=== PATIENT | female | born 1990 | race Caucasian/White ===

== ENCOUNTER → 2022-11-05 | Outpatient (CLI) | payer OTHER, SELFPAY ==
[2022-11-08 21:07] LABS: Chlamydia By Nucleic Acid AMP Negative (Negative); Gonococcus By Nucleic Acid AMP Negative (Negative)
== END | disposition home or self-care (01) ==
PROVIDERS: Visit Provider Advanced Practice Midwife
DX: O09.90 Supervision of high risk pregnancy, unspecified, unspecified trimester (principal); Z3A.00 Weeks of gestation of pregnancy not specified
CPT/HCPCS: 87086; 87088; 87491; 87591

== ENCOUNTER → 2022-12-14 | Outpatient (CLI) | payer OTHER, SELFPAY ==
[2022-12-14 09:04] LABS: Absolute Lymphocyte Count 1.44 X10^3/uL (0.83-4.51); Absolute Neutrophil Count 6.1 X10^3/uL (2.0-7.7); Basophil# 0.05 X10^3/uL; Basophil% 0.6 % (0-1); Eosinophil# 0.18 X10^3/uL; Eosinophils% 2.2 % (0-5); Hematocrit 36.4 % (37-47); Hemoglobin 11.5 g/dL (12.0-15.0); Lymphocyte # 1.44 X10^3/ul (0.83-4.51); Lymphocyte % 17.2 % (19-41); Mean Corp Hgb Conc 31.6 g/dL (32-36); Mean Corpuscular Hgb 27.6 pg (27.0-32.0); Mean Corpuscular Volume 87.3 fL (81-99); Mean Platelet Vol. 10.7 fl (6.2-12.0); NRBC Flagged by Analyzer 0 % (0-5); Neutrophil # 6.12 X10^3/uL (2.7-7.7); Neutrophil % 73.3 % (47-70); Platelet Count 221 K/mm3 (150-450); RBC Distribution Width CV 13.5 % (11.6-14.6); Red Blood Count 4.17 M/mm3 (4.2-5.4); White Blood Count 8.4 K/mm3 (4.4-11.0)
[2022-12-14 09:14] LABS: Glucose Challenge Gest 1H 50g 122 mg/dL (70-140)
[2022-12-14 10:01] LABS: HIV - WCH Non-Reactive (Nonreactive); Hepatitis B Surface Antigen Non-Reactive (Nonreactive); Hepatitis C Antibody Non-Reactive (Nonreactive); Rubella IgG Reactive (Nonreactive); Syphilis Antibodies Non-reactive
== END | disposition home or self-care (01) ==
PROVIDERS: Referring Provider Advanced Practice Midwife; Visit Provider Advanced Practice Midwife
DX: O99.210 Obesity complicating pregnancy, unspecified trimester (principal); Z3A.00 Weeks of gestation of pregnancy not specified
CPT/HCPCS: 36415; 82950; 85025; 86703; 86762; 86780; 86803; 86850; 86900; 86901; 87340

== ENCOUNTER → 2023-03-24 | Outpatient (CLI) | payer OTHER, SELFPAY ==
[2023-03-24 10:18] LABS: Absolute Lymphocyte Count 1.49 X10^3/uL (0.83-4.51); Absolute Neutrophil Count 6.7 X10^3/uL (2.0-7.7); Basophil# 0.02 X10^3/uL; Basophil% 0.2 % (0-1); Eosinophil# 0.17 X10^3/uL; Eosinophils% 1.9 % (0-5); Hematocrit 33.3 % (37-47); Hemoglobin 11.2 g/dL (12.0-15.0); Lymphocyte # 1.49 X10^3/ul (0.83-4.51); Lymphocyte % 16.6 % (19-41); Mean Corp Hgb Conc 33.6 g/dL (32-36); Mean Corpuscular Hgb 29.5 pg (27.0-32.0); Mean Corpuscular Volume 87.6 fL (81-99); Monocyte# 0.51 X10^3/uL; Monocyte% 5.7 % (0-10); NRBC Flagged by Analyzer 0 % (0-5); Neutrophil # 6.71 X10^3/uL (2.7-7.7); Neutrophil % 74.5 % (47-70); Platelet Count 192 K/mm3 (150-450); RBC Distribution Width CV 13.7 % (11.6-14.6); RBC Distribution Width SD 43.8 fl (35.1-43.9)
[2023-03-24 10:24] LABS: Glucose Challenge Gest 1H 50g 153 mg/dL (70-140)
[2023-03-24 11:21] LABS: HIV - WCH Non-Reactive (Nonreactive); Syphilis Antibodies Non-reactive
== END | disposition home or self-care (01) ==
LOC: PAVLAB 09:40
PROVIDERS: Referring Provider Obstetrics & Gynecology; Visit Provider Obstetrics & Gynecology
DX: O09.90 Supervision of high risk pregnancy, unspecified, unspecified trimester (principal); Z3A.00 Weeks of gestation of pregnancy not specified; Z13.1 Encounter for screening for diabetes mellitus
CPT/HCPCS: 36415; 82950; 85025; 86703; 86780

== ENCOUNTER → 2023-05-05 | Outpatient (CLI) | payer OTHER, SELFPAY ==
--- NOTE | 2023-05-05 16:41 | US_ITS ---
INDICATION: low fundal height, growth EXAMINATION: Ultrasound US OB Limited 1 Or More Fetus TECHNIQUE: transabdominal pelvic ultrasound was performed. Grayscale, spectral waveform, and color flow Doppler evaluation of the adnexa. COMPARISON: 11/05/2022 with EDC 06/10/2023 LMP: 09/03/2022 Beta-hCG: Unknown. Provided EGA: 34 weeks 6 days FINDINGS: INTRAUTERINE GESTATION(s): Single. ESTIMATED GESTATIONAL AGE: 36 weeks 0 days ESTIMATED DUE DATE (DWAYNE): 06/02/2023 HEART MOTION is 143 bpm. AMNIOTIC FLUID INDEX (SILVANA): 20.7 cm ESTIMATED WEIGHT: 2642 g or 5 lbs. 13 oz. Percentile 59th%. BIOPHYSICAL PROFILE (BPP): Not assessed. PRESENTATION: Cephalic PLACENTA: Anterior. There is no placenta previa or abruption. CERVIX: The cervix is not visualized. US/OB Limited With Biometrics IMPRESSION: Single live intrauterine of 36 weeks 0 days. Electronically Signed: Mikey Lopez MD at 22:31 EST ,
== END | disposition home or self-care (01) ==
LOC: US 16:39
PROVIDERS: PCP Registered Nurse; Referring Provider Obstetrics & Gynecology; Visit Provider Obstetrics & Gynecology
DX: O26.843 Uterine size-date discrepancy, third trimester (principal); Z3A.00 Weeks of gestation of pregnancy not specified
CPT/HCPCS: 76816

== ENCOUNTER → 2023-05-26 | Outpatient (CLI) | payer OTHER, SELFPAY ==
[2023-05-26 15:19] LABS: ROM Internal Control Test YES-OK TO RESULT pt. (Internal QC); ROM Patient Test Negative (Negative)
[2023-05-26 15:20] LABS: Record Kit Lot#, ROM+ K1374
--- OUTSIDE RECORDS SUMMARY | 2023-05-26 17:27 | XMS RPT_ITS | CCD ---
Author Name Unknown Address [address] [place] [address] Organization [facility] Care Team Providers Care Protective Signal Operations Supervisor Name Role Phone Nadia Estes Primary Care Provider [phone] [facility], Primary Care Unavailable JONH NAIR Referring JONH Parsons SHARON E Attending Unavailabl e NO PRIMARY CAREMD Primary Care Unavailable JONH NAIR Referring MIREYA Knight Attending Unavailable NADIA ESTES Primary Care Unavailable Medications Current Medications Medication Drug Class(es) Dates Sig (Normalized) Sig (Original) Sertraline (1 source) Serotonin Reuptake Inhibitor Sertraline HCl (ZOLO FT PO) Take by mouth 0 Active Results Test Name Value Interpretation Reference Range Facil ity Encounters Encounter Date Encounter Type Care Provider Facility Start: 04-26-2023 ambulatory MIREYA [facility] Ambulatory Start: 01-31-2023 End: 01-31-2023 ambulatory JONH NAIR [facility] Start: 01-10-2023 End: 01-10-2023 ambulatory MD [facility] Start: 09-11-2020 End: 09-11-2020 Subsequent hospital visit by physician Milli Dm Gestfu Schedule [facility] Diabetic Education and Nursing Procedures Date Procedure Procedure Detail Performing Clinician Start: 08-26-[address] gtt 3 specimens Ravindra Currie Work Phone: Plan of Treatment Date Care Activity Detail Author Start: 05-31-2026 DTaP/Tdap/Td vaccine (2 - Td) DTaP/Tdap/Td vaccine (2 - Td) [facility] Work Phone: Start: 09-01-2021 Influenza vaccination Flu vacc ine (Season Ended) [employer] Phone: Start: 09-11-2020 End: 09-11-2020 Appointment 09/11/2020 Appointment Diabetes Services [facility] Diabetic Education and Nursing Start: 2010 Screening for malign ant neoplasm of cervix Cervical cancer screen [employer] Phone: Start: 2008 DTaP/Tdap/Td vaccine (1 - Tdap) DTaP/Tdap/Td vaccine (1 - Tdap) [employer] Phone: Start: 2005 COVID-19 Vaccine (1) COVID-19 Vaccin e (1) [employer] Phone: Start: 2004 HIV screening HIV screen [facility] Work Phone: Start: 1990 Varicella vaccine (1 of 2 - 2-dose childhood series) Varicella vaccine (1 of 2 - 2-dose childhood series) [employer] Phone: Start: 1989 Hepatitis C screening Hepatitis C sc reen [employer] Phone: Payers Date Payer Category Payer Private Health Insurance [id number] 2020 Private Health Insurance [id number] 2020 Private Health Insurance [id number] 1989 Unknown [id number] 1989 Unknown [id number] 1989 Unknown [id number] Unknown [id number] Social History Date Type Detail Facility Tobacco smoking status NHIS Unknown if ev er smoked [employer] Phone: Sex Assigned At Not on file [employer] Work Phone: Summary Purpose Family History No Family History Records FoundNo Family History Records FoundNo Family History Records Found Advance Directives No Advanced Directives Records FoundNo Advanced Directives Records FoundNo Advanced Directives Records Found Additional Source Comments Reason for Visit (unrecogniz ed section and content) INFORMATION SOURCE (unrecogn ized section and content) DATE CREATED AUTHOR AUTHOR'S ORGANIZ ATION 02/01/2023 [facility] DATE CREATED AUTHOR AUTHOR'S ORGANIZ ATION 04/29/2023 [facility] FOR RECORDS PERTAINING TO PATIENTS WHO ARE OR HAVE BEEN ENROLLED IN A CHEMICAL DEPENDENCY/SUBSTANCEABUSE PROGRAM, SOME INFORMATION MAY BE OMITTED. This clinical summary was aggregated from multiple sources. Caution should be exercised in using it in the provision of clinical care. This summary normalizes information from multiple sources, and as a consequence, information in this document may materially change the coding, format and clinical context of patient data. In addition, data may be omitted in some cases. CLINICAL DECISIONS SHOULD BE BASED ON THE PRIMARY CLINICAL RECORDS. [employer] [facility]. provides no warranty or guarantee of the accuracy or completeness of information in this document.
== END | disposition home or self-care (01) ==
PROVIDERS: PCP Registered Nurse; Referring Provider Obstetrics & Gynecology; Visit Provider Obstetrics & Gynecology
DX: O09.90 Supervision of high risk pregnancy, unspecified, unspecified trimester (principal); Z3A.00 Weeks of gestation of pregnancy not specified
CPT/HCPCS: 84112; 87081

== ENCOUNTER 2023-06-03 05:15 | Inpatient (IN) | payer OTHER, SELFPAY ==
[2023-06-03] VITALS (25 sets, daily range): BP systolic 95–118; BP diastolic 55–83; PULSE 70–97; RESP 16–18; TEMP 36.1–36.6; O2SAT 96–100; BMI 40.7
[2023-06-03] MEDS: Lactated Ringers 1,000 ML 999 ML IV (05:30)
[2023-06-03 06:10] LABS: Absolute Lymphocyte Count 1.55 X10^3/uL (0.83-4.51); Basophil# 0.04 X10^3/uL; Basophil% 0.5 % (0-1); Eosinophils% 1.2 % (0-5); Hematocrit 34.2 % (37-47); Hemoglobin 11.1 g/dL (12.0-15.0); Lymphocyte # 1.55 X10^3/ul (0.83-4.51); Lymphocyte % 18.2 % (19-41); Mean Corp Hgb Conc 32.5 g/dL (32-36); Mean Corpuscular Hgb 28.2 pg (27.0-32.0); Mean Corpuscular Volume 86.8 fL (81-99); Mean Platelet Vol. 12.5 fl (6.2-12.0); Monocyte# 0.75 X10^3/uL; Monocyte% 8.8 % (0-10); NRBC Flagged by Analyzer 0 % (0-5); Neutrophil # 5.95 X10^3/uL (2.7-7.7); Platelet Count 190 K/mm3 (150-450); RBC Distribution Width CV 13.8 % (11.6-14.6); RBC Distribution Width SD 43.3 fl (35.1-43.9); Red Blood Count 3.94 M/mm3 (4.2-5.4); White Blood Count 8.5 K/mm3 (4.4-11.0)
[2023-06-03 06:21] LABS: Bedside Glucose 140 mg/dL (74-106)
--- NOTE | 2023-06-03 06:25 | HP.PCM.OB_ITS ---
HPI - General General Date of Admission: 06/03/23 HPI Narrative NAGA KLEIN, is a 32 F who presents for RLTCS due to Polyhydramnios and previous csection, unfavroable cervix. she failed her 1 hour GCT and declined 3 hour testing. She had checking BS 4 times daily for several weeks and they were WNL. SILVANA 25.6cm in office yesterday. Maternal Data Information DWAYNE Calculator Estimated Delivery Date Method Current WG Current Estimate 06/10/23 LMP (Certain) 39w 0d PFSH PFSH Medical History (Updated 06/03/23 @ 06:[address] Christine Barney MD) Abnormal glucose affecting History of depression Polyhydramnios Home Medications multivitamin with iron 1 tab PO DAILY 01/22/22 [History Last Taken 06/02/23 20:30] promethazine 12.5 mg tablet 12.5 mg PO Q6H PRN nausea and vomiting #90 tabs 11/08/22 [Rx Last Taken Unknown] doxylamine 20 mg-pyridoxine 20 mg tablet,immediate and delayed release (Bonjesta) 1 tab PO BID vomiting #60 tabs 11/17/22 [Rx Last Taken Unknown] sertraline 50 mg tablet (Zoloft) 50 mg PO DAILY ppd #90 tabs 04/04/23 [Rx Last Taken 06/02/23] blood sugar diagnostic (Blood Glucose Test strips) #120 ea 04/25/23 [Rx Last Taken Unknown] Allergy/AdvReac Type Severity Reaction Status Date / Time gluten Allergy Mild Abd Verified 06/03/23 05:28 cramps/diarrhea Family History Father Afib Surgical History delivery delivered H/O vaginal surgery Social History adopted: No household members: family number of children: 2 current occupational status: employed current occupation: [employer] pets and animals: Yes pets and animals: dog(s) history of recent travel: Yes out of country: Yes sexually active: Yes Smoking Status: Never smoker alcohol intake: current details: social substance use type: does not use caffeine: No what type of physical activity do you participate in: none seatbelt use: always do you feel safe at home: Yes additional social history: Noam PAZ 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 Date Name GA/Weeks Outcome Route Bth Weight Infant Gen Labor Lgth Anesthesia Del Locatn Provider FOB 07/01/16 Alana 41 live - full term Female s shanelle [place] 11/13/20 Deandre (Shar) 42 live - full term Male epidural [place] Dr. [facility] Visit Details Expected Delivery Route/Plan patient counseled regarding risks/benefits of trial of labor versus repeat . ACOG/uptodate education given to patient. 87 % likelihood of success per calculator TOLAC consent form signed: [] Labor Preferences- CB/BF classes: no labor support person: Flip labor intervention preferences: [] pain management options preferred: epidural cut cord/dad catch: yes : yes PP control planned: discussed discussed possible routes of delivery and associated risks: [] special requests: [] Plans Covid status: discussed Flu vaccine: discussed Tdap vaccine: declined Rhogam: NA LARC form signed: yes movement and labor precautions reviewed. Problem list reviewed and updated with the most current plan of care details and appropriate orders placed. Relevant counseling for the gestational age provided. Continue routine care and follow up unless otherwise noted in visit notes/problem list details OB Flowsheet Initial Weight: Not Recorded Date -?-?-?-?-?-?-?-?-?-?-?-?- EGA Weight BP Urine Prot -?-?-?-?-?-?-?-?-?-?-?-?- Glucose FHR FuHt Pres Dilation -?-?-?-?-?-?-?-?-?-?-?-?- Effaced St Visit Note 11/05/22 -?-?-?-?-?-?-?-?-?-?-?-?- 9w 0d 215 lb 2 oz 110/65 -?-?-?-?-?-?-?-?-?-?-?-?- 168 -?-?-?-?-?-?-?-?-?-?-?-?- KW- cons with da mikal. JV scanned. n/v- recommended Vit b6 and unisom 12/14/22 -?-?-?-?-?-?-?-?-?-?-?-?- 14w 4d 211 lb 2 oz 107/72 Nega tive -?-?-?-?-?-?-?-?-?-?-?-?- Negative -?-?-?-?-?-?-?-?-?-?-?-?- KW-FHR seen on h andheld US. no vb/cramping, PRR, US ordered. no concerns today 01/13/23 -?-?-?-?-?-?-?-?-?-?-?-?- 18w 6d 215 lb 4 oz 118/74 Nega tive -?-?-?-?-?-?-?-?-?-?-?-?- Negative 156 -?-?-?-?-?-?-?-?-?-?-?-?- MH-no VB, crampi ng. Nausea managed with Rx. Denies concerns. 02/11/23 -?-?-?-?-?-?-?-?-?-?-?-?- 23w 0d 217 lb 114/77 Negative -?-?-?-?-?-?-?-?-?-?-?-?- Negative 150 -?-?-?-?-?-?-?-?-?-?-?-?- SM- no vb lof go od fm no regular ctx 03/17/23 -?-?-?-?-?-?-?-?-?-?-?-?- 27w 6d 220 lb 120/74 Negative -?-?-?-?-?-?-?-?-?-?-?-?- Negative 143 -?-?-?-?-?-?-?-?-?-?-?-?- MH-No VB, LOF. G ood FM. Larc. Doing 28 wk labs tomorrow. 03/29/23 -?-?-?--?-?-?-?-?-?-?-?-?- 29w 4d 224 lb 2 oz 103/60 -?-?-?-?-?-?-?-?-?-?-?-?- 145 30 -?-?-?-?-?-?-?-?-?-?-?-?- JV- pt declines tdap she also declines doing a 3 hr gtt. she will do 2 hr pp testing and fasting for 2 weeks now then restart testing at 36 weeks. wants to . her last she was 40 weeks 5 days and went into spontaneous labor. 04/12/23 -?-?-?-?-?-?-?-?-?-?-?-?- 31w 4d 222 lb 6 oz 110/72 1+ -?-?-?-?-?-?-?-?-?-?-?-?- Negative 139 32 Cephalic -?-?-?-?-?-?-?-?-?-?-?-?- JV- fasting radamese ls are 80-82, 2 hr pp are all under 120. TOLAC signed. doing well on zoloft. 04/28/23 -?-?-?-?-?-?-?-?-?-?-?-?- 33w 6d 224 lb 112/75 Negative -?-?-?-?-?-?-?-?-?-?-?-?- Negative 130 32 Cephalic -?-?-?-?-?-?-?-?-?-?-?-?- SM- no vb lof go od fm no regular ctx reviwed BW and all WNL 05/09/23 -?-?-?-?-?-?-?-?-?-?-?-?- 35w 3d 226 lb 105/70 Negative -?-?-?-?-?-?-?-?-?-?-?-?- Negative 150 39 Cephalic -?-?-?-?-?-?-?-?-?-?-?-?- JV- growth us sh ows 50th%, 5 lbs 13 oz, vtx, silvana 20. plan for and next week gbs and cervix exam. 05/26/23 -?-?-?-?-?-?-?-?-?-?-?-?- 37w 6d 227 lb 115/78 Negative -?-?-?-?-?-?-?-?-?-?-?-?- Negative 140 39 Cephalic 0 .5 -?-?-?-?-?-?-?-?-?-?-?-?- SM- no vb questi onable lof- rom sent. good fm irreuglar ctx gbs collected 06/02/23 -?-?-?-?-?-?-?-?-?-?-?-?- 38w 6d 229 lb 113/69 -?-?-?-?-?-?-?-?-?-?-?-?- 140 40 Cephalic 0.5 -?-?-?-?-?-?-?-?-?-?-?-?- SM- no vb lof go od fm very uncomfortable with irregular ctx discussed delivery by 41 weeks, will induce whenever favorable NST FHR Rate Baby A Baseline: 130 ROS Constitutional Constitutional: Reports systems reviewed and no addt'l complaints, except as documented Eyes Eyes: Denies change in vision ENT HEENT: Reports systems reviewed and no addt'l complaints, except as documented; Denies headache(s) Cardiovascular Cardiovascular: Reports systems reviewed and no addt'l complaints, except as documented; Denies chest pain or dyspnea Respiratory/Chest Respiratory/Chest: Reports systems reviewed and no addt'l complaints, except as documented Gastrointestinal Gastrointestinal: Reports systems reviewed and no addt'l complaints, except as documented; Denies abdominal pain Genitourinary Genitourinary: Reports systems reviewed and no addt'l complaints, except as documented, contractions Details: present (irregular) and movement Details: present; Denies dysuria or genital lesions Musculoskeletal Musculoskeletal: Reports systems reviewed and no addt'l complaints, except as documented Neurologic Neurologic: Reports systems reviewed and no addt'l complaints, except as documented Endocrine Endocrinology: Reports systems reviewed and no addt'l complaints, except as documented Vital Signs Vital Signs Vital Signs: 06/03/23 05:45 06/03/23 05:33 06/03/23 05:33 Temperature 97.4 F L Temperature Source Temporal Pulse Rate 97 96 Respiratory Rate 16 Blood Pressure 118/72 118/72 Blood Pressure Mean 87 BP Systolic 118 BP Diastolic 72 Blood Pressure Source Monitor Blood Pressure Position Semi-Fowlers Blood Pressure Location Right Arm Pulse Ox Oxygen Delivery Method Room Air 06/03/23 05:33 Temperature Temperature Source Pulse Rate Respiratory Rate Blood Pressure Blood Pressure Mean BP Systolic BP Diastolic Blood Pressure Source Blood Pressure Position Blood Pressure Location Pulse Ox 96 Oxygen Delivery Method Weight Weight: 229 lb 15.074 oz Body Mass Index (BMI) 40.7 Physical Exam Const alert, oriented x3, no apparent distress and healthy appearing HEENT normocephalic and moist oral mucous membranes Head and Scalp: atraumatic Neck full ROM, no lymphadenopathy, supple and thyroid normal General: trachea midline Lymph Lymphatic: no lymphadenopathy noted Chest inspection of chest normal Resp normal respiratory effort Cardio regular rate GI normal to inspection, nondistended, normoactive bowel sounds, soft to palpation and non-tender Inspection: gravid external exam normal Manual OB Exam: estimated gestational size appropriate, presentation cephalic, dilated, effaced and station Extremity normal to inspection General Extremity: Negative for edema Skin no rashes or lesions noted Neuro no focal motor deficits and deep tendon reflexes 2+ bilaterally Motor Exam: strength 5/5 throughout and clonus absent Psych mental status grossly normal Labs Labs Labs: Blood Type A POSITIVE Antibody Screen NEGATIVE Hct 34.2 % (37-47) L Hgb 11.1 g/dL (12.0-15.0) L Pap Smear Negative Obstetrics Ultrasound Syphilis Total Ab Non-reactive Rubella IgG Antibody Reactive (Nonreactive) Hep Bs Antigen Non-Reactive (Nonreactive) Hepatitis C Antibody Non-Reactive (Nonreactive) Chlamydia DNA (ASH) Negative (Negative) N.gonorrhoeae DNA (ASH) Negative (Negative) HIV 1&2 Antibody Non-Reactive (Nonreactive) Glucose 1 Hr 50 gm 153 mg/dL (70-140) H Assessment & Plan (1) Abnormal glucose affecting : COMMENT: Pt has chose to do glucose testing at home for duration of . all WNL. (2) Obesity affecting : QUALIFIERS: Trimester: second trimester Obesity type affecting : unspecified obesity Qualified Code(s): O99.212 - Obesity complicating , second trimester COMMENT: early GCT-passed (3) : QUALIFIERS: Weeks of gestation: 38 weeks Qualified Code(s): Z3A.38 - 38 weeks gestation of COMMENT: GBS Negative, anatomy normal. NIPT/carrier/afp declines. DOC ONLY DELIVERY (4) Depression affecting : COMMENT: zoloft. counseling encouraged; stable (5) Supervision of high risk , antepartum: COMMENT: PRR, , DWAYNE 06/10/23 surprise AMADOR Warner & Deandre, Spouse-Flip (6) Polyhydramnios: COMMENT: recommend 39 week delivery PLAN: Plan proceed with RLTCS due to unfavorable cervix. polyhydramnios. will monitor blood sugars after of baby due to abnormal 1 hour.
--- NOTE | 2023-06-03 06:28 | EX.PCM.OBRPT ---
Assessment & Plan (1) delivery delivered: COMMENT: 39 SM polyhydramnios (2) Polyhydramnios: COMMENT: recommend 39 week delivery (3) Abnormal glucose affecting : COMMENT: Pt has chose to do glucose testing at home for duration of . all WNL. (4) Obesity affecting : QUALIFIERS: Obesity type affecting : unspecified obesity Trimester: second trimester Qualified Code(s): O99.212 - Obesity complicating , second trimester COMMENT: early GCT-passed (5) : QUALIFIERS: Weeks of gestation: 38 weeks Qualified Code(s): Z3A.38 - 38 weeks gestation of COMMENT: GBS Negative, anatomy normal. NIPT/carrier/afp declines. DOC ONLY DELIVERY (6) Depression affecting : COMMENT: zoloft. counseling encouraged; stable (7) Supervision of high risk , antepartum: COMMENT: PRR, , DWAYNE 06/10/23 surprise PC Alana & Deandre, Spouse-Flip Maternal Data Information DWAYNE Calculator Estimated Delivery Date Method Current WG Current Estimate 06/10/23 LMP (Certain) 39w 0d Final DWAYNE Source: LMP Details Operative Information Date of Procedure: 06/03/23 Pre-Operative Diagnosis: Previous Post-Operative Diagnosis: same Indications for : Repeat Elective Indications Narrative: Surgeon: Chrsitine Barney MD Classification: Scheduled Procedure Type: low transverse specialty food products supervisor #1: David Bush Type of Anesthesia: Spinal Special Medications: none Antibiotic Given: Ancef 2 grams IV x1 Drain: Figueroa to straight drain Estimated Blood Loss: 400 Fluids Replaced: crystalloid Procedure Start Time: 07:50 Procedure Stop Time: 08:30 Findings Description of Procedure: Spinal anesthesia was placed without difficulty. Figueroa catheter was placed. The patient was placed in the dorsal supine position with leftward tilt. Patient was prepped and draped in the normal sterile fashion. Pfannenstiel skin incision was made with the scalpel and carried through to the underlying layer of fascia with the scalpel. Fascia was nicked in the midline and the incision extended laterally. The rectus bellies were dissected off superiorly and inferiorly with out complication both sharply and bluntly. The peritoneum was entered digitally. The incision was stretched and a low transverse uterine incision was made with the scalpel. The 's head was delivered atraumatically followed by the anterior and posterior shoulders without complication the rest of the delivered. The cord was clamped and cut and the infant was handed off to awaiting nurse. The placenta was delivered spontaneously immediately following and was noted to be intact and have a three-vessel cord. The uterus was exteriorized cleared of all clots and debris, and the incision was closed in a single layer closure using #1 Monocryl. The ovaries and fallopian tubes were noted to be within normal limits. The uterus was returned to the maternal abdomen and gutters were cleared of all clots and debris. aishwarya applied The peritoneum was closed with 3-0 Monocryl in a running fashion. Fascia was closed with 0 PDS in a running fashion. Subcutaneous tissue was copiously irrigated and the skin was closed with 3-0 Monocryl in a subcuticular fashion. Mepilex dressing was applied without complication. Patient was taken to recovery in stable condition. Amniotic Membrane Rupture Type: Artificial Amniotic Fluid Description: Clear Placenta Disposition: [facility] Cord Vessel Description: 3 Vessels Delayed Cord Clamping: Yes Complications Risks of Surgery Discussed w/Patient: Bleeding, Infection, Need for Future C-Sections and Injury to surrounding structure(s) including bowel and bladder Vaginal Delivery Complication Complications: None Admit VTE Documentation VTE Present on Admission: No VTE Mechan Device Prophylaxis: SCD's Procedures Urinary/Genital [id number]: [id number] Delivery [facility]
--- NOTE | 2023-06-03 06:29 | DCINST_ITS ---
Discharge Instructions Diet Discharge Diet: No restrictions Activity Discharge Activity: May Not Drive (for 2 weeks or while taking narcotic pain medications.), May Shower and May Take a Tub Bath (in 7 days) May shower in (days): 0 May resume sexual activity in: 4-6 weeks Weight Bearing Status: Full weight bearing Lifting Restrictions: 20 pounds Dressing / Incision Call your doctor if your incision/area has: Continuous Slow Oozing, Sudden Increased Bleeding, Increased Pain/ Swelling, Increased Redness and Foul Smelling Discharge Call your doctor if you observe: Fever of 101 or Higher and Using more than 1 pad per hour (for 2 hours) Suture Line Care: Avoid Pulling/Pushing and Avoid Pinching/Bending Cleanse incision/area with: Soap & Water and Keep Dressing Clean & Dry Follow Up Care Please Follow Up With: Christine Barney MD When: Call [phone] to make an appointment for an incision check in 1-2 weeks. Test Results: Test results from this visit will be discussed in further detail at your follow- up appointment, if applicable. Discharge Plan Admission Admit Date/Time: 06/03/23 05:15 Attending Provider: Christine Barney Primary Care Provider: Noa Golden NP Discharge Orders/Prescriptions Prescriptions: New oxycodone-acetaminophen [Percocet] 5-325 mg tablet 1 tab PO Q6H PRN (Reason: pain) 7 Days Qty: 20 0RF naproxen [naproxen] 500 mg tablet 500 mg PO BID PRN PRN (Reason: Pain) Qty: 30 1RF No Action multivitamin with iron Tablet 1 tab PO DAILY promethazine 12.5 mg tablet 12.5 mg PO Q6H PRN (Reason: nausea and vomiting) Qty: 90 4RF Hold Instructions: Order Completed Bonjesta 20-20 mg tablet,IR,delayed rel,biphasic 1 tab PO BID Qty: 60 5RF Hold Instructions: Order Completed sertraline [Zoloft] 50 mg tablet 50 mg PO DAILY Qty: 90 4RF (DME) Blood Glucose Test Strip See Rx Instructions .Route Qty: 120 5RF Rx Instructions: As directed Referrals / Follow Up: Noa Golden NP, SALES DEVELOPMENT REPRESENTATIVE-C [Primary Care Provider] - Disposition Disposition (needs filled in before D/C Order can be placed): Home, Self Care
[2023-06-03] MEDS: Acetaminophen 500 MG Tablet 1000 MG PO ×3 (06:53→18:41)
[2023-06-03] MEDS: Sodium Citrate/Citric Acid 30 ML UDC PO (06:53)
[2023-06-03] MEDS: Lactated Ringers 1,000 ML 150 ML IV (06:54)
[2023-06-03] MEDS: Cefazolin 2 GM in 0.9% Normal Saline (100mL Bag) 100 ML IV (07:14)
[2023-06-03] MEDS: Oxytocin 15 Units/NS 250ml 15 UNITS/250 ML IV.SOLN 83 UNITS IV (08:45)
[2023-06-03] MEDS: Ketorolac 30 MG/ML Syringe IV ×3 (09:20→21:27)
[2023-06-03 09:36] LABS: Bedside Glucose 85 mg/dL (74-106)
[2023-06-03 09:57] LABS: Syphilis Antibodies Non-reactive
[2023-06-03] MEDS: Senna/Docusate Sodium 1 Tablet PO (10:12)
[2023-06-03] MEDS: DiphenhydrAMINE 25 MG Capsule PO (10:57)
[2023-06-03] MEDS: Lactated Ringers 1,000 ML 100 ML IV (11:49)
[2023-06-03] MEDS: 0.9% Saline Lock 10 ML Syringe IV ×2 (17:03→21:27)
[2023-06-03] MEDS: Sertraline 50 MG Tablet PO (19:48)
[2023-06-03] MEDS: SimETHICONE 80 MG Chewable Tablet PO (19:48)
[2023-06-03] MEDS: Enoxaparin 40 MG/0.4 ML Syringe SC (19:48)
[2023-06-04] VITALS (8 sets, daily range): BP systolic 101–118; BP diastolic 57–70; PULSE 76–85; RESP 16–18; TEMP 36.1–36.6; O2SAT 97–98
[2023-06-04] MEDS: Acetaminophen 500 MG Tablet 1000 MG PO ×4 (01:04→18:35)
[2023-06-04] MEDS: 0.9% Saline Lock 10 ML Syringe IV ×2 (03:54→10:05)
[2023-06-04] MEDS: Ketorolac 30 MG/ML Syringe IV ×2 (03:54→10:05)
[2023-06-04] MEDS: SimETHICONE 80 MG Chewable Tablet PO ×3 (04:22→16:28)
[2023-06-04 05:13] LABS: Hematocrit 29.3 % (37-47); Hemoglobin 9.5 g/dL (12.0-15.0); Mean Corp Hgb Conc 32.4 g/dL (32-36); Mean Corpuscular Hgb 28.4 pg (27.0-32.0); Mean Corpuscular Volume 87.5 fL (81-99); Mean Platelet Vol. 12.1 fl (6.2-12.0); Platelet Count 144 K/mm3 (150-450); RBC Distribution Width CV 14.3 % (11.6-14.6); RBC Distribution Width SD 45.5 fl (35.1-43.9); Red Blood Count 3.35 M/mm3 (4.2-5.4); White Blood Count 8.7 K/mm3 (4.4-11.0)
[2023-06-04 06:04] LABS: Bedside Glucose 94 mg/dL (74-106)
[2023-06-04] MEDS: oxyCODONE 5 MG Tablet PO ×2 (08:41→18:39)
[2023-06-04] MEDS: Senna/Docusate Sodium 1 Tablet PO (08:47)
--- NOTE | 2023-06-04 09:47 | PCM.PN.OB ---
Subjective Subjective Patient is laying in bed comfortably without complaints. She states that she slept on an off during the night. Lochia is mild but pain is higher than she feels comfortable with. She states that at times the pain is making her have cold sweats. She is currently on toradol, oxycodone, and tylenol. Objective Data Objective Data Vital Signs: Vital Signs Temp Pulse Resp BP Pulse Ox O2 Del Method 97.8 F 85 16 112/68 97 Room Air 06/04/23 08:15 06/04/23 08:15 06/04/23 08:15 06/04/23 08:15 06/04/23 08:15 06/04/23 08:15 Oxygen Delivery Method Room Air Weight: 229 lb 15.074 oz Body Mass Index (BMI) 40.7 Intake & Output: Intake and Output for Last 24 Hours 06/02/23 06/03/23 06/04/23 23:59 23:59 23:59 Intake Total 2425 / 2425 Output Total 2600 / 2600 Balance -175 / -175 Lab / Micro Data 06/04/23 05:00 Labs: Laboratory Results - last 24 hr 06/03/23 05:30: Syphilis Total Ab Non-reactive 06/04/23 04:01: POC Glucose 94 06/04/23 05:00: WBC 8.7, RBC 3.35 L, Hgb 9.5 L, Hct 29.3 L, MCV 87.5, MCH 28.4, MCHC 32.4, RDW Std Deviation 45.5 H, RDW Coeff of Stephany 14.3, Plt Count 144 L, MPV 12.1 H ROS Constitutional Constitutional: Reports systems reviewed and no addt'l complaints, except as documented Cardiovascular Cardiovascular: Denies chest pain, dizziness, dyspnea or irregular heart rhythm Respiratory/Chest Respiratory/Chest: Denies cough, pain on inspiration or shortness of breath at rest Gastrointestinal Gastrointestinal: Denies abdominal pain, nausea or vomiting Genitourinary Genitourinary: Denies burning urination Musculoskeletal Musculoskeletal: Denies muscle cramps, muscle spasms or muscle weakness Neurologic Neurologic: Denies confusion, dizziness, headache(s) or lack of coordination Psychiatric Psychiatric: Denies anxiety, behavioral changes or depression Physical Exam HEENT normocephalic Resp normal respiratory effort and normal air movement GI soft to palpation, non-tender and non-distended Rectal Exam: other Other Details: Incision is clean, dry, and intact no CVA tenderness Extremity normal to inspection General Extremity: edema bilateral (trace ) Assessment & Plan (1) delivery delivered: COMMENT: 39 SM polyhydramnios PLAN: s/p LTCS PPD # 1 1. routine post care 2. breast feeding- support given 3. rh positive 4. rubella immune 5. plan to continue toradol this am and add a muscle relaxor for breakthrough pain.
[2023-06-04] MEDS: Methocarbamol 500 MG Tablet 1000 MG PO ×2 (12:30→19:23)
[2023-06-04] MEDS: Naproxen 500 MG Tablet PO (16:28)
[2023-06-04] MEDS: Enoxaparin 40 MG/0.4 ML Syringe SC (20:27)
[2023-06-04] MEDS: Sertraline 50 MG Tablet PO (20:27)
--- NOTE | 2023-06-04 20:29 | CASEMGMT ---
Social Work Assessment Labor and Delivery Unit Patient Address: [address] [place] [address] Dr [address]es Phone number: [phone] Date of Referral: 06/04/2023 Time of Referral:? 05:34 Referred By: Ector Date of Intervention: ?06/04/2023 Time of Intervention:? 4:15 Reason for Referral:? Mental Health ? PPD hx History obtained from: medical records and mother of baby (MOB), FOB Household composition: MOB, FOB ? Flip Zhou and 6 year old and 2 year old. Patient's parent/guardian status: MOB and FOB have been together for 9 years and share 2 other children. Medical History: MOB received adequate care. 2 prior births, this baby was a scheduled . MOB denies medical concerns for self and baby. Baby girl born, apgars 7/8 and 6.11 pounds. MOB is and has done so previously. Educational Status: No literacy concerns Financial Status: No financial concerns Supplies: MOB reports having all necessary supplies and equipment Childcare/Caregiver(s):? MOB/FOB will care for baby. Transportation:? No concerns Programs/Agencies Involved: ??None Children Services/Legal Issues:? None Behavioral Health Issues: ?? Mental Health History: Mother has a hx of PPD and has schedule with her counselor and started Zoloft to be proactive. MOB has mental health resources and is utilizing her supports. MOB reports more PP anxiety than depression and with previous births struggled to leave baby?s side at all. FOB is supportive of MOB?s decisions to care for her mental health. Substance Use History: Denies Family History: Denies? Drug Screens: ?None Family/Social Stressors:? Denies Support Systems: FOB, large supportive family Depression: Education and resources provided and parents receptive Shaken Baby: Education and resources provided and parents receptive Safe Sleeping: Education and resources provided and parents receptive ASSESSMENT: MOB and FOB appropriate and demonstrate positive interactions with one another and the baby. PLAN:? No other services requested or indicated. Jessica Blount AREA DEVELOPMENT CONSULTANT, LINE CONTROLLER
[2023-06-05] MEDS: Acetaminophen 500 MG Tablet 1000 MG PO ×3 (01:58→12:45)
[2023-06-05] MEDS: Naproxen 500 MG Tablet PO ×2 (01:58→10:29)
[2023-06-05 02:00] VITALS: BP 106/64; PULSE 75; RESP 16; TEMP 36.6; O2SAT 95
[2023-06-05] MEDS: oxyCODONE 5 MG Tablet PO ×3 (02:15→12:39)
[2023-06-05 08:17] VITALS: BP 112/66; PULSE 75; RESP 16; TEMP 36.7; O2SAT 100
[2023-06-05] MEDS: SimETHICONE 80 MG Chewable Tablet PO ×2 (09:10→12:45)
--- NOTE | 2023-06-05 10:03 | PCM.DC.SUM ---
Providers Date of Admission: 06/03/23 Primary Care Physician: Noa Golden, EQUIPMENT COORDINATOR-C Reason For Visit: C SECTION/CSECTION DELIVERY Diagnosis Discharge Diagnosis (1) delivery delivered: Status: Acute Code(s): O82 - Encounter for delivery without indication Plan: s/p LTCS PPD # 1 1. routine post care 2. breast feeding- support given 3. rh positive 4. rubella immune 5. plan to continue toradol this am and add a muscle relaxor for breakthrough pain. Medications at Discharge Home Medications multivitamin with iron 1 tab PO DAILY 01/22/22 promethazine 12.5 mg tablet 12.5 mg PO Q6H PRN nausea and vomiting #90 tabs 11/08/22 doxylamine 20 mg-pyridoxine 20 mg tablet,immediate and delayed release (Bonjesta) 1 tab PO BID vomiting #60 tabs 11/17/22 sertraline 50 mg tablet (Zoloft) 50 mg PO DAILY ppd #90 tabs 04/04/23 blood sugar diagnostic (Blood Glucose Test strips) #120 ea 04/25/23 naproxen 500 mg tablet 500 mg PO BID PRN PRN Pain #30 tabs 06/03/23 oxycodone-acetaminophen 5 mg-325 mg tablet (Percocet) 1 tab PO Q6H PRN pain 7 days #20 tabs 06/03/23 Hospital Course Operations None and section Summary of Care Provided Minutes Spent on Discharge: 30 Hospital Course: The patient was admitted for a repeat section on 06/03/2023. There were no complications. On day #1 she was tolerating pain well with the help of oxycodone and motrin and ambulating well. On day #2 she was ready for discharge. Physical Exam HEENT normocephalic Resp normal respiratory effort and normal air movement GI soft to palpation, non-tender and non-distended Rectal Exam: other Other Details: Incision is clean, dry, and intact no CVA tenderness Extremity normal to inspection General Extremity: edema bilateral (trace ) Weight / BMI Weight Weight: 229 lb 15.074 oz Body Mass Index (BMI) 40.7 ABG / Lab / Microbiology Data 06/04/23 05:00 D/C Instructions Discharge Diet: No restrictions May shower in (days): 0 May resume sexual activity in: 4-6 weeks Weight Bearing Status: Full weight bearing Call your doctor if your incision/area has: Continuous Slow Oozing, Sudden Increased Bleeding, Increased Pain/ Swelling, Increased Redness and Foul Smelling Discharge Call your doctor if you observe: Fever of 101 or Higher and Using more than 1 pad per hour (for 2 hours) Suture Line Care: Avoid Pulling/Pushing and Avoid Pinching/Bending Cleanse incision/area with: Soap & Water and Keep Dressing Clean & Dry Please Follow Up With: Christine Barney MD When: Call [phone] to make an appointment for an incision check in 1-2 weeks. Meaningful Use Info Meaningful Use Diagnoses (Choose all that apply): None applicable Discharge Plan Admission Admit Date/Time: 06/03/23 05:15 Attending Provider: Christine Barney Primary Care Provider: Noa Golden NP Discharge Orders/Prescriptions Prescriptions: New oxycodone-acetaminophen [Percocet] 5-325 mg tablet 1 tab PO Q6H PRN (Reason: pain) 7 Days Qty: 20 0RF naproxen [naproxen] 500 mg tablet 500 mg PO BID PRN PRN (Reason: Pain) Qty: 30 1RF No Action multivitamin with iron Tablet 1 tab PO DAILY promethazine 12.5 mg tablet 12.5 mg PO Q6H PRN (Reason: nausea and vomiting) Qty: 90 4RF Hold Instructions: Order Completed Bonjesta 20-20 mg tablet,IR,delayed rel,biphasic 1 tab PO BID Qty: 60 5RF Hold Instructions: Order Completed sertraline [Zoloft] 50 mg tablet 50 mg PO DAILY Qty: 90 4RF (DME) Blood Glucose Test Strip See Rx Instructions .Route Qty: 120 5RF Rx Instructions: As directed Referrals / Follow Up: Noa Golden NP, EQUIPMENT COORDINATOR-C [Primary Care Provider] - Disposition Disposition (needs filled in before D/C Order can be placed): Home, Self Care
[2023-06-05] MEDS: Senna/Docusate Sodium 1 Tablet PO (10:29)
[2023-06-05 14:46] VITALS: BP 99/56; PULSE 81; RESP 16; TEMP 36.3
== END 2023-06-05 15:10 | disposition home or self-care (01) | DRG 786 ==
PROVIDERS: Admitting Provider Obstetrics & Gynecology; PCP Registered Nurse; Visit Provider Obstetrics & Gynecology
PROC: 10D00Z1 Extraction of Products of Conception, Low, Open Approach (ICD-10-PCS; CPT 59514; principal; 2023-06-03 07:00)
DX: O34.211 Maternal care for low transverse scar from previous cesarean delivery (principal); O34.33 Maternal care for cervical incompetence, third trimester; O99.214 Obesity complicating childbirth; O40.3XX0 Polyhydramnios, third trimester, not applicable or unspecified; F32.A Depression, unspecified; O99.344 Other mental disorders complicating childbirth; O99.814 Abnormal glucose complicating childbirth; Z37.0 Single live birth; Z3A.39 39 weeks gestation of pregnancy; Z79.899 Other long term (current) drug therapy; Z87.59 Personal history of other complications of pregnancy, childbirth and the puerperium
CPT/HCPCS: 59025; 59050; 82962; 85025; 85027; 86780; 86850; 86900; 86901; 99221; J7120; A4216; G0378; J2405

== ENCOUNTER → 2024-07-23 | Outpatient (CLI) | payer SELFPAY ==
[2024-07-26 16:08] LABS: HPV APTIMA, High Risk Negative (Negative)
== END | disposition home or self-care (01) ==
LOC: LABSPEC 16:10
PROVIDERS: PCP Registered Nurse; Referring Provider Obstetrics & Gynecology; Visit Provider Obstetrics & Gynecology
DX: Z12.4 Encounter for screening for malignant neoplasm of cervix (principal)
CPT/HCPCS: 87624; 88175; G0145

== ENCOUNTER → 2024-12-28 | Outpatient (CLI) | payer SELFPAY | END | disposition home or self-care (01) | LOC: LABSPEC 15:51 | PROVIDERS: PCP Registered Nurse; Visit Provider Obstetrics & Gynecology | DX: N89.8 Other specified noninflammatory disorders of vagina (principal) | CPT/HCPCS: 87070; 87205 ==